=== PATIENT | male | born 1985 | race Caucasian/White ===

== ENCOUNTER 2016-05-23 01:22 | Emergency (ER) | payer OTHER ==
[~2016-05-23] VITALS: Ht 180.3 cm; Wt 68.0 kg
[~2016-05-23 01:22] MED LIST: KEFLEX500 MG PO
[2016-05-23 02:05] VITALS: BP 128/82
== END 2016-05-23 02:00 | disposition admitted as inpatient to this hospital (09) ==
LOC: ERH 01:22
DX: M54.5 Low back pain (principal)